=== PATIENT | female | born 1985 | race Two or more races ===

== ENCOUNTER 2018-06-09 19:34 | Emergency (ER) | payer MEDICAID ==
[~2018-06-09] VITALS: Ht 182.9 cm; Wt 181.4 kg
[2018-06-09] MEDS ORDERED: IV NS 0.9% 1,000 ML BAG IV ONE (20:00)
[2018-06-09] MEDS ORDERED: ONDANSETRON HCL/PF 4 MG/2 ML VIAL IVP ONE (20:00)
[2018-06-09] MEDS ORDERED: MORPHINE SULFATE INJ 2 MG/ML DISP.SYRIN IV ONE (20:00)
[2018-06-09] MEDS ORDERED: ONDANSETRON HCL/PF 4 MG/2 ML VIAL ONE (20:04)
[2018-06-09] MEDS ORDERED: MORPHINE SULFATE INJ 4 MG/ML DISP.SYRIN ONE (20:05)
--- NOTE | 2018-06-09 20:15 | NUR ---
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 PT IS CURRENTLY IN PAIN 8/10 AND NAUSEATED. 20G IV STARTED IN RAC AND BLOOD WAS DRAWN.
[2018-06-09 20:20] LABS: BASOPHILS # (AUTO) 0.1 /CMM (0.0-0.2); BASOPHILS % (AUTO) 0.4 % (0.0-2.0); EOSINOPHILS % (AUTO) 2.1 % (0.0-6.0); HEMATOCRIT 37 % (33-45); LYMPHOCYTES # (AUTO) 2.9 /CMM (0.8-4.8); LYMPHOCYTES % (AUTO) 23.3 % (20.0-44.0); MEAN CORPUSCULAR HGB CONC 33 g/dl (31.0-36.0); MEAN CORPUSCULAR VOLUME 80 fL (82-100); MONOCYTES % (AUTO) 7.7 % (2.0-12.0); NEUTROPHILS # (AUTO) 8.3 /CMM (1.8-8.9); NEUTROPHILS % (AUTO) 66.5 % (43.0-81.0); PLATELET COUNT (AUTO) 333 /CMM (150-450); RED BLOOD CELL COUNT(AUTO) 4.58 MIL/uL (4.0-5.2); WHITE BLOOD COUNT (AUTO) 12.5 K/uL (4.3-11.0)
--- NOTE | 2018-06-09 20:23 | NUR ---
PT AMBULATED TO THE BATHROOM TO GIVE A URINE SAMPLE.
[2018-06-09 20:33] LABS: ALANINE AMINOTRANSFERASE 25 U/L (12-78); ALBUMIN 3.7 g/dL (3.4-5.0); ALKALINE PHOSPHATASE 76 U/L (46-116); ASPARTATE AMINOTRANSFERASE 17 U/L (15-37); BILIRUBIN,DIRECT 0.1 mg/dL (0.0-0.2); BILIRUBIN,TOTAL 0.3 mg/dL (0.2-1.0); CALCIUM, SERUM 9.1 mg/dL (8.5-10.1); CARBON DIOXIDE 28 mmol/L (21-32); CHLORIDE 102 mmol/L (98-107); CREATININE 1.1 mg/dL (0.6-1.3); GLUCOSE 105 mg/dL (74-106); LIPASE 132 U/L (73-393); POTASSIUM 3.8 mmol/L (3.5-5.1); SODIUM SERUM 137 mmol/L (136-145); TOTAL PROTEIN, SERUM 7.9 g/dL (6.4-8.2); UREA NITROGEN, BLOOD 11 mg/dL (7-18)
--- NOTE | 2018-06-09 20:36 | NUR ---
URINE SAMPLE SENT TO LAB.
[2018-06-09 20:38] LABS: APPEARANCE,URINE Cloudy (CLEAR); BILIRUBIN,URINE SMALL (NEGATIVE); BLOOD, URINE Moderate Ery/uL (NEGATIVE); COLOR,URINE Yellow (YELLOW); KETONES,URINE Negative (NEGATIVE); LEUKOCYTE ESTERASE ,URINE Trace (NEGATIVE); NITRITE, URINE Negative (NEGATIVE); PROTEIN,URINE Trace mg/dl (NEGATIVE); UGLUCOSE Negative (NEGATIVE); UROBILINOGEN,URINE 0.2 EU/dL (0.2)
[2018-06-09 20:53] LABS: BACTERIA,URINE Few /HPF (None Seen); SQUAMOUS EPITHELIAL CELL,UR Few /HPF (None Seen)
[2018-06-09 20:54] LABS: URINE AMORPHOUS URATE Many /HPF (None Seen)
--- NOTE | 2018-06-09 21:01 | NUR ---
US HENRY GRIFFIN, ARRIVED AND IS AT THE BEDSIDE.
--- NOTE | 2018-06-09 21:21 | NUR ---
US TECH FINISHED AND DR ACE IS AT THE BEDSIDE SPEAKING TO THE PT.
[2018-06-09 21:59] VITALS: BP 141/87
== END 2018-06-09 22:00 | disposition home or self-care (01) ==
LOC: ER 19:37
DX: K80.50 Calculus of bile duct without cholangitis or cholecystitis without obstruction (principal); T24.211A Burn of second degree of right thigh, initial encounter; R31.29 Other microscopic hematuria; E66.01 Morbid (severe) obesity due to excess calories; F12.90 Cannabis use, unspecified, uncomplicated; Z68.43 Body mass index [BMI] 50.0-59.9, adult; Z98.890 Other specified postprocedural states; Y27.3XXA Contact with hot household appliance, undetermined intent, initial encounter; Y93.89 Activity, other specified; Y92.89 Other specified places as the place of occurrence of the external cause; Y99.8 Other external cause status
CPT/HCPCS: 36415; 76700; 80048; 80076; 81001; 83690; 84484; 85025; 87086; 93005; 96361; 96374; 96375; 99284; J2270; J2405; J7030; 81000-TC

== ENCOUNTER 2018-06-16 11:28 | Emergency (ER) | payer MEDICAID ==
[~2018-06-16] VITALS: Ht 182.9 cm; Wt 187.3 kg
--- NOTE | 2018-06-16 12:26 | NUR ---
PT BROUGHT INTO EMERGENCY ROOM FOR MEDICATION REFILL.
[2018-06-16] MEDS ORDERED: ONDANSETRON HCL/PF 4 MG/2 ML VIAL ONE ×2 (12:28→14:44)
[2018-06-16] MEDS ORDERED: ONDANSETRON HCL/PF 4 MG/2 ML VIAL IVP ONE (12:30)
[2018-06-16] MEDS ORDERED: IV NS 0.9% 1,000 ML BAG IV ONE (12:30)
[2018-06-16 12:52] LABS: BILIRUBIN,URINE NEGATIVE (NEGATIVE); BLOOD, URINE 2+ Ery/uL (NEGATIVE); COLOR,URINE YELLOW (YELLOW); KETONES,URINE NEGATIVE (NEGATIVE); LEUKOCYTE ESTERASE ,URINE TRACE (NEGATIVE); NITRITE, URINE NEGATIVE (NEGATIVE); PH,URINE 5.5 (5.0-8.0); PROTEIN,URINE 1+ mg/dl (NEGATIVE); UGLUCOSE NEGATIVE (NEGATIVE); UROBILINOGEN,URINE 0.2 EU/dL (0.2)
[2018-06-16 12:55] LABS: APPEARANCE,URINE SLIGHTLY CLOUDY (CLEAR)
[2018-06-16 13:02] LABS: BACTERIA,URINE Moderate /HPF (None Seen); SQUAMOUS EPITHELIAL CELL,UR Many /HPF (None Seen)
[2018-06-16 13:03] LABS: MUCUS,URINE Many /LPF (None Seen)
[2018-06-16 13:06] LABS: ALBUMIN 3.6 g/dL (3.4-5.0); BILIRUBIN,TOTAL 0.2 mg/dL (0.2-1.0); CREATININE 0.9 mg/dL (0.6-1.3); POTASSIUM 3.7 mmol/L (3.5-5.1); TOTAL PROTEIN, SERUM 7.4 g/dL (6.4-8.2)
[2018-06-16 13:08] LABS: BASOPHILS # (AUTO) 0.1 /CMM (0.0-0.2); BASOPHILS % (AUTO) 0.9 % (0.0-2.0); EOSINOPHILS % (AUTO) 2.7 % (0.0-6.0); HEMATOCRIT 36 % (33-45); LYMPHOCYTES # (AUTO) 1.7 /CMM (0.8-4.8); LYMPHOCYTES % (AUTO) 15.6 % (20.0-44.0); MEAN CORPUSCULAR HGB CONC 33 g/dl (31.0-36.0); MEAN CORPUSCULAR VOLUME 79 fL (82-100); MONOCYTES # (AUTO) 0.9 /CMM (0.1-1.30); MONOCYTES % (AUTO) 8.1 % (2.0-12.0); NEUTROPHILS # (AUTO) 7.8 /CMM (1.8-8.9); NEUTROPHILS % (AUTO) 72.7 % (43.0-81.0); PLATELET COUNT (AUTO) 306 /CMM (150-450); RED BLOOD CELL COUNT(AUTO) 4.56 MIL/uL (4.0-5.2); WHITE BLOOD COUNT (AUTO) 10.7 K/uL (4.3-11.0)
[2018-06-16] MEDS ORDERED: METRONIDAZOLE 500MG/ NS 100ML 500 MG in PREMIX 1 EA IV STA (14:07)
[2018-06-16] MEDS ORDERED: CEFTRIAXONE 1 G in IV D5W 50 ML IV STA (14:07)
[2018-06-16] MEDS ORDERED: METRONIDAZOLE 500MG/ NS 100ML 100 ML IV ONE (14:15)
[2018-06-16] MEDS ORDERED: CEFTRIAXONE 1GM BAG (ER ONLY) 50 ML IV ONE (14:15)
[2018-06-16] MEDS ORDERED: IBUP-1955 PO (14:21)
[2018-06-16] MEDS ORDERED: HYDR-3972 PO (14:21)
[2018-06-16] MEDS ORDERED: MORPHINE SULFATE INJ 2 MG/ML DISP.SYRIN IV ONE (14:30)
[2018-06-16] MEDS ORDERED: ONDANSETRON HCL/PF 4 MG/2 ML VIAL IV ONE (14:30)
[2018-06-16] MEDS ORDERED: MORPHINE SULFATE INJ 4 MG/ML DISP.SYRIN ONE (14:45)
--- NOTE | 2018-06-16 15:10 | NUR ---
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 .
--- NOTE | 2018-06-16 15:15 | NUR ---
DOCTOR KATHERYN RIVERA MD WILL CALL TO SPEAK TO MD HUANG.
[2018-06-16] MEDS ORDERED: HYDROMORPHONE 1 MG/1 ML DISP.SYRIN IV ONE (16:30)
[2018-06-16] MEDS ORDERED: HYDROMORPHONE 1 MG/1 ML DISP.SYRIN ONE (16:31)
--- NOTE | 2018-06-16 17:47 | NUR ---
EMILY FROM [facility] CALLED WITH BED ASSIGNMENT ROOM 224=A RN FOR REPORT KAREN. TELEPHONE NUMBER NO ETA YET PENDING BARRIACTIC BED FOR TRANSPORT. CALLED AND GAVE RN TO RN REPORT
--- NOTE | 2018-06-16 18:19 | NUR ---
PT BLS TO [facility] ETA [phone]
--- NOTE | 2018-06-16 18:32 | NUR ---
TRANSP[facility] ENROUTE NO ETA GIVEN
--- NOTE | 2018-06-16 19:16 | NUR ---
[id number] HERE TO PICK PT UP TO GO [facility] .
[2018-06-16] MEDS ORDERED: HYDROCODONE/APAP 10/325MG 1 EA TABLET PO ONE (19:30)
[2018-06-16] MEDS ORDERED: HYDROCODONE/APAP 10/325MG 1 EA TABLET ONE (19:35)
[2018-06-16 19:37] VITALS: BP 136/86
== END 2018-06-16 19:37 | disposition short-term general hospital (02) ==
LOC: ER 11:31
DX: K80.18 Calculus of gallbladder with other cholecystitis without obstruction (principal); R11.0 Nausea; E66.01 Morbid (severe) obesity due to excess calories; Z98.890 Other specified postprocedural states
CPT/HCPCS: 36415; 76705; 80048; 80076; 81001; 83690; 85025; 87086; 96365; 96375; 96376; 99285; A4216; J0696; J1170; J2270; J2405 ×2; J3490; J7030; J7060; 81000-TC